=== PATIENT | male | born 1980 | race Caucasian/White ===

== ENCOUNTER 2017-10-22 00:56 | Observation (INO) ==
--- NOTE | 2017-10-22 01:17 | Emergency Department Note ---
Disposition Clinical Impression: Delusion of persecution, Amphetamine abuse Disposition: Admitted As Inpatient Condition: Fair General Adult HPI - General Chief complaint: ED Extremity Injury, Lower Stated complaint: feet blisters Time Seen by Provider: 10/22/17 00:59 Source: patient Limitations: no limitations Nursing Notes Reviewed: Yes Vital Signs Reviewed: Yes - History of Present Illness HPI Narrative: Patient's a 37-year-old male who presents the emergency department with complaints of bilateral foot blisters. Patient states he has "people from [address]" who has been following him and are attempting to harm him. He states he was seen at the police station and they did not believe him that he was told to come to the emergency department. He states he has been running from these people for several days and as a result his feet have become blistered. He denies the use of any illicit drugs other than intermittent marijuana. He states no one believes him and would like a urine drug screen to prove his sobriety. He otherwise denies any fever, chills, chest pain, shortness of breath, suicidal ideation or homicidal ideation. Pain Scale: 5 - Related Data Home Medications Medication Instructions Recorded Confirmed Lisinopril/Hydrochlorothiazide 1 each PO DAILY 05/14/15 05/14/15 [Zestoretic 20-25 mg Tablet] Previous Rx's Medication Instructions Recorded Naproxen [Naprosyn] 500 mg PO BID PRN #14 tablet 02/19/15 Ondansetron HCl [Zofran] 4 mg PO Q6HR PRN #12 tablet 02/19/15 Docusate [Colace] 100 mg PO BID #30 capsule 05/14/15 OxyCODONE/APAP 5/325 [Percocet 1 each PO Q4HR PRN #30 tablet 05/14/15 5/325 MG] Allergies Allergy/AdvReac Type Severity Reaction Status Date / Time Erythromycin Base AdvReac Vomiting Verified 02/24/15 16:09 Review of Systems: Pertinent positives and negatives reviewed in history of present illness. All other systems reviewed and are negative or normal. Past Medical History - Past Medical History Medical history: Reports: hypertension Surgical history: Reports: no surgical history Psychiatric history: Reports: anxiety, depression - Social History Smoking Status: Current every day smoker Smokeless Tobacco Status: No Alcohol use: Reports: none Drug use: Reports: none Physical Exam - General Limitations: no limitations General appearance: alert, in no apparent distress - Head Head exam: atraumatic, normocephalic - Eye Eye exam: Present: normal appearance - ENT ENT exam: normal exam (r great toe) - Respiratory Respiratory exam: Present: normal lung sounds bilaterally. Absent: respiratory distress - Cardiovascular Cardiovascular exam: Present: normal rhythm, tachycardia, normal heart sounds - Abdominal Exam Abdominal exam: Present: soft, Non-Tender - Expanded Lower Extremity Exam Foot/toe exam: Present: nail avulsion 1 - 2cm Oval unroofed bullae with erythematous skin beneath. No evidence of warmth or signs of infection. Skin is moist and painful to touch. 2 - [id number] intact moist bullae with white skin, painful to touch - Neurological Exam Neurological exam: Present: alert, oriented X3 - Psychiatric Psychiatric exam: Present: agitated, anxious - Expanded Psychiatric Exam Expanded psych exam: Present: paranoid, restlessness - Skin Skin exam: Present: warm, dry, intact Course - Reevaluation(s) Reevaluation #1: Patient refusing to give a urine sample as he believes a blonde haired lady followed him here and will put opioids in his urine sample. Straight cath ordered. Time: 03:40 - Consultations Consultation #1: Discussed with ELENI Ansari who will admit the patient. Time: 06:02 Vital Signs Temperature 98.7 F 10/22/17 01:04 Pulse Rate 119 10/22/17 01:04 Respiratory Rate 18 10/22/17 01:04 Blood Pressure 159/107 10/22/17 01:04 O2 Sat by Pulse Oximetry 97 10/22/17 01:04 Temperature 98.7 F 10/22/17 01:04 Pulse Rate 111 10/22/17 05:22 Respiratory Rate 20 10/22/17 05:22 Blood Pressure 171/77 10/22/17 05:22 O2 Sat by Pulse Oximetry 95 10/22/17 05:22 Oxygen Delivery Oxygen Delivery Room Air Medical Decision Making - MDM Narrative Medical decision making narrative: Patient's presentation concerning for hallucinations versus psychosis. Patient states people are out to get him and the police do not believe him. He states multiple patients being seen in the ED are actually here to attack him. Given his delusions, possible hallucinations, and paranoid behavior, patient has been put under an involuntary hold pending further medical evaluation. Urine drug screen revealed positive for amphetamines and given tachycardia and hypertension the patient is clinically intoxicated. Ativan given. Will require medical admission prior to psychiatric evaluation. Case discussed with hospitalist who will admit. - Medical Records Medical records reviewed: Yes I reviewed the patient's medical records. - Lab Data Lab results reviewed: Yes I reviewed the patient's lab results. Result diagrams: 10/22/17 02:20 10/22/17 02:20 Lab Results 10/22/17 10/22/17 10/22/17 Range/Units 02:20 02:20 03:56 WBC 11.0 (4.3-11.1) K/mcL RBC 4.87 (4.19-5.50) M/mcL Hgb 15.7 (12.9-16.9) g/dL Hct 44.0 (37.5-50.1) % MCV 90.3 (83.0-100.0) fL MCH 32.2 (28.0-33.3) pg MCHC 35.7 H (31.6-35.5) g/dL RDW 12.2 (11.5-14.5) % Plt Count 236 (140-400) K/mcL MPV 9.9 (9.4-12.4) fL Immature Gran % 0.4 (0-4) % Seg Neutrophils % 70.0 % Lymphocytes % 19.7 % Monocytes % 9.0 % Eosinophils % 0.2 % Basophils % 0.7 % Neutrophils # 7.7 (1.6-8.9) K/mcL Lymphocytes # 2.2 (0.6-4.6) K/mcL Monocytes # 1.0 (0.0-1.3) K/mcL Eosinophils # 0.0 (0.0-0.6) K/mcL Basophils # 0.1 (0.0-0.2) K/mcL Sodium 136 (136-145) mEq/L Potassium 3.4 L (3.5-5.1) mEq/L Chloride 100 (98-107) mEq/L Carbon Dioxide 26 (23-29) mEq/L BUN 20 (6-20) mg/dL Creatinine 1.08 (0.70-1.30) mg/dL Est GFR ( Amer) > 60 (> 60) Est GFR (Non-Af Amer) > 60 (> 60) BUN/Creatinine Ratio 19 (6-26) Glucose 160 H (70-105) mg/dL Calculated Osmolality 288 (280-300) Calcium 9.9 (8.6-10.3) mg/dL Urine Color Dark Yellow (Yellow) Urine Clarity Cloudy A (Clear) Urine pH 6.0 (5.0-8.0) pH Units Ur Specific [place] 1.023 (1.010-1.025) Urine Protein 100 H (Neg-Trace) mg/dL Urine Glucose (UA) Normal (Normal) mg/dL Urine Ketones 15 H (Negative) mg/dL Urine Blood Negative (Negative) Urine Nitrite Negative (Negative) Urine Bilirubin Small H (Negative) Urine Urobilinogen Normal (Normal) mg/dL Ur Leukocyte Esterase Negative (Negative) Urine Microscopic RBC 3-5 H (0-3) per hpf Urine Microscopic WBC 0-3 (0-3) per hpf Ur Squamous Epith Cells Many H (None-Few) per lpf Amorphous Sediment Few (Few) Urine Bacteria Moderate H (None-Few) per hpf Hyaline Casts Few (None-Few) per lpf Salicylates < 2.5 L (15.0-30.0) mg/dL Urine Opiates Screen (Dvxytj=596) ng/mL Acetaminophen < 10 L (10-20) mcg/mL Ur Barbiturates Screen (Uqlhwy=767) ng/mL Ur Phencyclidine Scrn (Cutoff=25) ng/mL Ur Amphetamines Screen (Lvdyiz=7087) ng/mL U Benzodiazepines Scrn (Aspgrk=151) ng/mL Urine Cocaine Screen (Cutoff= 300) ng/mL U Marijuana (THC) Screen (Cutoff = 50) ng/mL Ur Drug Screen Interp Ethyl Alcohol < 10 (Less than 10) mg/dL 10/22/17 Range/Units 03:56 WBC (4.3-11.1) K/mcL RBC (4.19-5.50) M/mcL Hgb (12.9-16.9) g/dL Hct (37.5-50.1) % MCV (83.0-100.0) fL MCH (28.0-33.3) pg MCHC (31.6-35.5) g/dL RDW (11.5-14.5) % Plt Count (140-400) K/mcL MPV (9.4-12.4) fL Immature Gran % (0-4) % Seg Neutrophils % % Lymphocytes % % Monocytes % % Eosinophils % % Basophils % % Neutrophils # (1.6-8.9) K/mcL Lymphocytes # (0.6-4.6) K/mcL Monocytes # (0.0-1.3) K/mcL Eosinophils # (0.0-0.6) K/mcL Basophils # (0.0-0.2) K/mcL Sodium (136-145) mEq/L Potassium (3.5-5.1) mEq/L Chloride (98-107) mEq/L Carbon Dioxide (23-29) mEq/L BUN (6-20) mg/dL Creatinine (0.70-1.30) mg/dL Est GFR ( Amer) (> 60) Est GFR (Non-Af Amer) (> 60) BUN/Creatinine Ratio (6-26) Glucose (70-105) mg/dL Calculated Osmolality (280-300) Calcium (8.6-10.3) mg/dL Urine Color (Yellow) Urine Clarity (Clear) Urine pH (5.0-8.0) pH Units Ur Specific [place] (1.010-1.025) Urine Protein (Neg-Trace) mg/dL Urine Glucose (UA) (Normal) mg/dL Urine Ketones (Negative) mg/dL Urine Blood (Negative) Urine Nitrite (Negative) Urine Bilirubin (Negative) Urine Urobilinogen (Normal) mg/dL Ur Leukocyte Esterase (Negative) Urine Microscopic RBC (0-3) per hpf Urine Microscopic WBC (0-3) per hpf Ur Squamous Epith Cells (None-Few) per lpf Amorphous Sediment (Few) Urine Bacteria (None-Few) per hpf Hyaline Casts (None-Few) per lpf Salicylates (15.0-30.0) mg/dL Urine Opiates Screen Negative (Zjhbjn=240) ng/mL Acetaminophen (10-20) mcg/mL Ur Barbiturates Screen Negative (Jcqxky=357) ng/mL Ur Phencyclidine Scrn Negative (Cutoff=25) ng/mL Ur Amphetamines Screen Positive H (Bxoumx=1228) ng/mL U Benzodiazepines Scrn Negative (Ayzfji=554) ng/mL Urine Cocaine Screen Negative (Cutoff= 300) ng/mL U Marijuana (THC) Screen Negative (Cutoff = 50) ng/mL Ur Drug Screen Interp See Below Ethyl Alcohol (Less than 10) mg/dL
[2017-10-22 02:29] LABS: Basophils # 0.1 K/mcL (0.0-0.2); Basophils % 0.7 %; Eosinophils % 0.2 %; Hemoglobin 15.7 g/dL (12.9-16.9); Immature Granulocytes % 0.4 % (0-4); Lymphocytes # 2.2 K/mcL (0.6-4.6); Lymphocytes % 19.7 %; Mean Corpuscular HGB Conc 35.7 g/dL (31.6-35.5); Mean Corpuscular Hemoglobin 32.2 pg (28.0-33.3); Mean Corpuscular Volume 90.3 fL (83.0-100.0); Mean Platelet Volume 9.9 fL (9.4-12.4); Neutrophils # 7.7 K/mcL (1.6-8.9); Platelet Count 236 K/mcL (140-400); Red Blood Count 4.87 M/mcL (4.19-5.50); Red Cell Distribution Width 12.2 % (11.5-14.5)
[2017-10-22 02:47] LABS: Acetaminophen < 10 mcg/mL (10-20); BUN/Creatinine Ratio 19 (6-26); Blood Urea Nitrogen 20 mg/dL (6-20); Calcium 9.9 mg/dL (8.6-10.3); Carbon Dioxide 26 mEq/L (23-29); Chloride 100 mEq/L (98-107); Ethanol < 10 mg/dL (Less than 10); Glucose 160 mg/dL (70-105); Osmolality,Calculated 288 (280-300); Potassium 3.4 mEq/L (3.5-5.1); Salicylate < 2.5 mg/dL (15.0-30.0); Sodium 136 mEq/L (136-145); eGFR For Non-African Americans > 60 (> 60)
--- NOTE | 2017-10-22 02:47 | Emergency Department Note ---
Disposition Clinical Impression: Delusion of persecution, Amphetamine abuse Disposition: Admitted As Inpatient Condition: Good General Adult HPI - General Chief complaint: ED Extremity Injury, Lower Stated complaint: feet blisters Time Seen by Provider: 10/22/17 00:59 Source: patient Limitations: no limitations - History of Present Illness Pain Scale: 5 - Related Data Home Medications Medication Instructions Recorded Confirmed Lisinopril [Zestril] 20 mg PO DAILY 10/22/17 10/22/17 Previous Rx's Medication Instructions Recorded hydroCHLOROthiazide 12.5 mg PO DAILY tablet 10/23/17 [Hydrochlorothiazide] Allergies Allergy/AdvReac Type Severity Reaction Status Date / Time Erythromycin Base AdvReac Vomiting Verified 10/22/17 12:34 Past Medical History - Past Medical History Medical history: Reports: hypertension Surgical history: Reports: no surgical history Psychiatric history: Reports: anxiety, depression - Social History Smoking Status: Current every day smoker Smokeless Tobacco Status: No Alcohol use: Reports: none Drug use: Reports: none Physical Exam - General Limitations: no limitations General appearance: alert, in no apparent distress Course Vital Signs Temperature 98.7 F 10/22/17 01:04 Pulse Rate 119 10/22/17 01:04 Respiratory Rate 18 10/22/17 01:04 Blood Pressure 159/107 10/22/17 01:04 O2 Sat by Pulse Oximetry 97 10/22/17 01:04 Temperature 98.4 F 10/23/17 11:48 Pulse Rate 85 10/23/17 11:48 Respiratory Rate 20 10/23/17 11:48 Blood Pressure 130/64 10/23/17 11:48 O2 Sat by Pulse Oximetry 100 10/23/17 11:48 Oxygen Delivery Oxygen Delivery Room Air Medical Decision Making - Lab Data Result diagrams: 10/22/17 02:20 10/22/17 02:20 Lab Results 10/22/17 10/22/17 10/22/17 Range/Units 02:20 02:20 03:56 WBC 11.0 (4.3-11.1) K/mcL RBC 4.87 (4.19-5.50) M/mcL Hgb 15.7 (12.9-16.9) g/dL Hct 44.0 (37.5-50.1) % MCV 90.3 (83.0-100.0) fL MCH 32.2 (28.0-33.3) pg MCHC 35.7 H (31.6-35.5) g/dL RDW 12.2 (11.5-14.5) % Plt Count 236 (140-400) K/mcL MPV 9.9 (9.4-12.4) fL Immature Gran % 0.4 (0-4) % Seg Neutrophils % 70.0 % Lymphocytes % 19.7 % Monocytes % 9.0 % Eosinophils % 0.2 % Basophils % 0.7 % Neutrophils # 7.7 (1.6-8.9) K/mcL Lymphocytes # 2.2 (0.6-4.6) K/mcL Monocytes # 1.0 (0.0-1.3) K/mcL Eosinophils # 0.0 (0.0-0.6) K/mcL Basophils # 0.1 (0.0-0.2) K/mcL Sodium 136 (136-145) mEq/L Potassium 3.4 L (3.5-5.1) mEq/L Chloride 100 (98-107) mEq/L Carbon Dioxide 26 (23-29) mEq/L BUN 20 (6-20) mg/dL Creatinine 1.08 (0.70-1.30) mg/dL Est GFR ( Amer) > 60 (> 60) Est GFR (Non-Af Amer) > 60 (> 60) BUN/Creatinine Ratio 19 (6-26) Glucose 160 H (70-105) mg/dL Calculated Osmolality 288 (280-300) Calcium 9.9 (8.6-10.3) mg/dL Urine Color Dark Yellow (Yellow) Urine Clarity Cloudy A (Clear) Urine pH 6.0 (5.0-8.0) pH Units Ur Specific [place] 1.023 (1.010-1.025) Urine Protein 100 H (Neg-Trace) mg/dL Urine Glucose (UA) Normal (Normal) mg/dL Urine Ketones 15 H (Negative) mg/dL Urine Blood Negative (Negative) Urine Nitrite Negative (Negative) Urine Bilirubin Small H (Negative) Urine Urobilinogen Normal (Normal) mg/dL Ur Leukocyte Esterase Negative (Negative) Urine Microscopic RBC 3-5 H (0-3) per hpf Urine Microscopic WBC 0-3 (0-3) per hpf Ur Squamous Epith Cells Many H (None-Few) per lpf Amorphous Sediment Few (Few) Urine Bacteria Moderate H (None-Few) per hpf Hyaline Casts Few (None-Few) per lpf Salicylates < 2.5 L (15.0-30.0) mg/dL Urine Opiates Screen (Tepdxj=810) ng/mL Acetaminophen < 10 L (10-20) mcg/mL Ur Barbiturates Screen (Jijzci=347) ng/mL Ur Phencyclidine Scrn (Cutoff=25) ng/mL Ur Amphetamines Screen (Ccndfd=1960) ng/mL U Benzodiazepines Scrn (Cjojyy=711) ng/mL Urine Cocaine Screen (Cutoff= 300) ng/mL U Marijuana (THC) Screen (Cutoff = 50) ng/mL Ur Drug Screen Interp Ethyl Alcohol < 10 (Less than 10) mg/dL 10/22/17 Range/Units 03:56 WBC (4.3-11.1) K/mcL RBC (4.19-5.50) M/mcL Hgb (12.9-16.9) g/dL Hct (37.5-50.1) % MCV (83.0-100.0) fL MCH (28.0-33.3) pg MCHC (31.6-35.5) g/dL RDW (11.5-14.5) % Plt Count (140-400) K/mcL MPV (9.4-12.4) fL Immature Gran % (0-4) % Seg Neutrophils % % Lymphocytes % % Monocytes % % Eosinophils % % Basophils % % Neutrophils # (1.6-8.9) K/mcL Lymphocytes # (0.6-4.6) K/mcL Monocytes # (0.0-1.3) K/mcL Eosinophils # (0.0-0.6) K/mcL Basophils # (0.0-0.2) K/mcL Sodium (136-145) mEq/L Potassium (3.5-5.1) mEq/L Chloride (98-107) mEq/L Carbon Dioxide (23-29) mEq/L BUN (6-20) mg/dL Creatinine (0.70-1.30) mg/dL Est GFR ( Amer) (> 60) Est GFR (Non-Af Amer) (> 60) BUN/Creatinine Ratio (6-26) Glucose (70-105) mg/dL Calculated Osmolality (280-300) Calcium (8.6-10.3) mg/dL Urine Color (Yellow) Urine Clarity (Clear) Urine pH (5.0-8.0) pH Units Ur Specific [place] (1.010-1.025) Urine Protein (Neg-Trace) mg/dL Urine Glucose (UA) (Normal) mg/dL Urine Ketones (Negative) mg/dL Urine Blood (Negative) Urine Nitrite (Negative) Urine Bilirubin (Negative) Urine Urobilinogen (Normal) mg/dL Ur Leukocyte Esterase (Negative) Urine Microscopic RBC (0-3) per hpf Urine Microscopic WBC (0-3) per hpf Ur Squamous Epith Cells (None-Few) per lpf Amorphous Sediment (Few) Urine Bacteria (None-Few) per hpf Hyaline Casts (None-Few) per lpf Salicylates (15.0-30.0) mg/dL Urine Opiates Screen Negative (Hbkiaw=265) ng/mL Acetaminophen (10-20) mcg/mL Ur Barbiturates Screen Negative (Imvxud=780) ng/mL Ur Phencyclidine Scrn Negative (Cutoff=25) ng/mL Ur Amphetamines Screen Positive H (Ujmiqk=8504) ng/mL U Benzodiazepines Scrn Negative (Nslnxq=691) ng/mL Urine Cocaine Screen Negative (Cutoff= 300) ng/mL U Marijuana (THC) Screen Negative (Cutoff = 50) ng/mL Ur Drug Screen Interp See Below Ethyl Alcohol (Less than 10) mg/dL Attestation Statement - Attestation Attestation: I examined this patient and my medical decision-making was reviewed with the Resident Physician. I agree with the documented findings, disposition and treatment plan as described except to the extent set forth below. Patient telling rather bizarre story of multiple individuals trying to kill him as a result of a drug that that his brother O's. Has singled out multiple individuals in the ED who he says are not here to be seen, but are here to get him instead. He is oriented, does not have delirium. I believe he is having paranoid delusions at this point. Psychiatric evaluation has been ordered.
[2017-10-22 04:06] LABS: Bilirubin,Urine Small (Negative); Blood,Urine Negative (Negative); Clarity,Urine Cloudy (Clear); Color,Urine Dark Yellow (Yellow); Glucose,Urine (UA) Normal (Normal); Ketones,Urine 15 mg/dL (Negative); Leukocyte Esterase,Urine Negative (Negative); Nitrite,Urine Negative (Negative); Protein,Urine 100 mg/dL (Neg-Trace); Specific Gravity,Urine 1.023 (1.010-1.025); Urobilinogen,Urine Normal (Normal)
[2017-10-22 04:07] LABS: Squamous Epithelial Cell,Urine Many per lpf (None-Few); WBC,Urine 0-3 per hpf (0-3)
[2017-10-22 04:25] LABS: Hyaline Casts,Urine Few per lpf (None-Few)
[2017-10-22 04:26] LABS: Amorphous Sediment,Urine Few (Few); Amphetamine Screen,Urine Positive ng/mL (Cutoff=1000); Bacteria,Urine Moderate per hpf (None-Few); Barbiturate Screen,Urine Negative ng/mL (Cutoff=200); Benzodiazepines Screen,Urine Negative ng/mL (Cutoff=200); Cannabinoid Screen,Urine Negative ng/mL (Cutoff = 50); Cocaine Screen,Urine Negative ng/mL (Cutoff= 300); Opiate Screen,Urine Negative ng/mL (Cutoff=300); Phencyclidine Screen,Urine Negative ng/mL (Cutoff=25)
[2017-10-22] MEDS ORDERED: *HR* LORazepam 1 MG TABLET PO ONE (04:38)
[2017-10-22] MEDS ORDERED: *HR* LORazepam 2 MG/ML VIAL IM ONE (05:03)
[2017-10-22] MEDS ORDERED: *HR* LORazepam 2 MG/ML VIAL ONE (05:05)
[2017-10-22] MEDS ORDERED: Naloxone 0.4 MG/ML INJ IVP PRN (08:29)
[2017-10-22] MEDS ORDERED: Potassium Chloride Elixir 20 MEQ/15 ML UDC PO ONE (08:31)
[2017-10-22] MEDS ORDERED: *HR* LORazepam 2 MG/ML VIAL IVP PRN (08:54)
--- NOTE | 2017-10-22 08:59 | Internal Med History&Physical ---
Date of Encounter: 10/22/17 Time of Encounter: 08:30 Internal Medicine - H&P: HPI Chief complaint: delusion History of present illness: Mr. Negro is a 37 year old male presented to the ED with paranoid idea that people are trying to kill him. Patient was medicated overnight with ativan and currently sleeping comfortably. Further information was obtained from chart review and the sitter who had been monitoring him. Apparently, he was oriented but had delusional ideas about people wanting to harm him in the ED. Afebrile but tachycardic. Labs were notable for mild hypokalemia. Urine drug screen positive for amphetamine. EtOH < 10. No known history of EtOH abuse or withdrawal. Did not have EKG done in the ED but the one done on the floor showed sinus rhythm with a rate of 90. Past Med Surg Social Fam HX - Past Medical History Medical history: hypertension Psychiatric history: anxiety, depression - Past Surgical History Surgical History: no surgical history - Social History Smoking Status: Current every day smoker Smokeless Tobacco Status: No Alcohol use: none Drug use: none Internal Medicine - H&P: Meds Naproxen [Naprosyn] 500 mg PO BID PRN #14 tablet 02/19/15 [Rx] Ondansetron HCl [Zofran] 4 mg PO Q6HR PRN #12 tablet 02/19/15 [Rx] Docusate [Colace] 100 mg PO BID #30 capsule 05/14/15 [Rx] Lisinopril/Hydrochlorothiazide [Zestoretic 20-25 mg Tablet] 1 each PO DAILY [History] OxyCODONE/APAP 5/325 [Percocet 5/325 MG] 1 each PO Q4HR PRN #30 tablet 05/14/15 [Rx] 3 Allergy/AdvReac Type Severity Reaction Status Date / Time Erythromycin Base AdvReac Vomiting Verified 02/24/15 16:09 All Systems PM: A 10-system review of systems was performed and is negative for pertinent findings except as documented above in the HPI. - Constitutional Vitals: Temp Pulse Resp BP Pulse Ox 98.2 F 116 18 126/77 95 10/22/17 06:47 10/22/17 06:47 10/22/17 06:47 10/22/17 06:47 10/22/17 06:47 Exam: General: resting comfortably, not in distress HEENT:EOM, pupils equal, round, and reactive. Cardiovascular:Normal S1 & S2, no murmurs or gallops. Lungs:Normal breath sounds Abdomen:Soft, non-tender Extremities:excoriations seen in both calves Neurological: no facial droop, focal deficits grossly Skin:Normal color, no rash, excoriations as above Pulses:Carotid and radial pulses normal +2. Rest of the physical exam is non-contributory Internal Med - H&P Results - Labs CBC & Chem 7: 10/22/17 02:20 10/22/17 02:20 - Assessment and plan (1) Amphetamine abuse Current Visit: Yes Status: Acute Assessment and plan: Presented with delusional ideas and tachycardia. Was medicating overnight with Ativan, currently resting comfortably with a heart rate of 90 Tachycardia was likely a physiological response to amphetamine which had already responded to BZD stable to transfer to psych unit (2) Delusion of persecution Current Visit: Yes Status: Acute Assessment and plan: Likely due to amphetamine use Management as above (3) Hypertension Current Visit: Yes Status: Acute Assessment and plan: Restart home meds when he is more alert Qualifiers: Hypertension type: unspecified Qualified Code(s): I10 - Essential (primary ) hypertension - Time Spent With Patient Total time spent is greater than 50% in coordination of care (as documented) at patient's floor/unit and/or counseling patient:
--- NOTE | 2017-10-22 11:23 | Consult Note ---
Date of Encounter: 10/22/17 Time of Encounter: 11:21 History of Present Illness Requesting Physician: Leighton Frazier Reason for consult: psychosis, drug induced? History of present illness: Mr. Negro is a 37 year old male admitted to the medical unit for possible psychosis versus drug-induced psychosis psychiatry was consulted for psychosis. On evaluation with patient this morning patient was unable to cooperate with interview he was unable to stay awake or keep his eyes open and was unable to answer any questions that were being asked by this provider. Patient was attempted to be woken up several times but patient was not able to stay awake patient was shaking and was worse restless and observation. Unable to assess safety at this time unable to assess if patient is currently suicidal or not unable to assess psychosis at this time we will need to reevaluate patient once he is more alert and able to converse he with this provider. In the meantime when necessary medication should be initiated for possible withdrawal symptoms and for agitation or aggression. CC: Leighton Frazier Past Med Surg Social Fam HX - Past Medical History Medical history: hypertension - Past Surgical History Surgical History: no surgical history - Social History Smoking Status: Current every day smoker Smokeless Tobacco Status: No Alcohol use: none Drug use: none Medications & Allergies Naproxen [Naprosyn] 500 mg PO BID PRN #14 tablet 02/19/15 [Rx] Ondansetron HCl [Zofran] 4 mg PO Q6HR PRN #12 tablet 02/19/15 [Rx] Docusate [Colace] 100 mg PO BID #30 capsule 05/14/15 [Rx] Lisinopril/Hydrochlorothiazide [Zestoretic 20-25 mg Tablet] 1 each PO DAILY [History] OxyCODONE/APAP 5/325 [Percocet 5/325 MG] 1 each PO Q4HR PRN #30 tablet 05/14/15 [Rx] 3 Allergy/AdvReac Type Severity Reaction Status Date / Time Erythromycin Base AdvReac Vomiting Verified 02/24/15 16:09 Psychiatry Exam - Constitutional Vitals: Temp Pulse Resp BP Pulse Ox 98.2 F 116 18 126/77 95 10/22/17 06:47 10/22/17 06:47 10/22/17 06:47 10/22/17 06:47 10/22/17 10:18 Results - Labs Labs: Laboratory Last Values WBC 11.0 K/mcL (4.3-11.1) 10/22/17 02:20 RBC 4.87 M/mcL (4.19-5.50) 10/22/17 02:20 Hgb 15.7 g/dL (12.9-16.9) 10/22/17 02:20 Hct 44.0 % (37.5-50.1) 10/22/17 02:20 MCV 90.3 fL (83.0-100.0) 10/22/17 02:20 MCH 32.2 pg (28.0-33.3) 10/22/17 02:20 MCHC 35.7 g/dL (31.6-35.5) H 10/22/17 02:20 RDW 12.2 % (11.5-14.5) 10/22/17 02:20 Plt Count 236 K/mcL (140-400) 10/22/17 02:20 MPV 9.9 fL (9.4-12.4) 10/22/17 02:20 Immature Gran % 0.4 % (0-4) 10/22/17 02:20 Seg Neutrophils % 70.0 % 10/22/17 02:20 Lymphocytes % 19.7 % 10/22/17 02:20 Monocytes % 9.0 % 10/22/17 02:20 Eosinophils % 0.2 % 10/22/17 02:20 Basophils % 0.7 % 10/22/17 02:20 Neutrophils # 7.7 K/mcL (1.6-8.9) 10/22/17 02:20 Lymphocytes # 2.2 K/mcL (0.6-4.6) 10/22/17 02:20 Monocytes # 1.0 K/mcL (0.0-1.3) 10/22/17 02:20 Eosinophils # 0.0 K/mcL (0.0-0.6) 10/22/17 02:20 Basophils # 0.1 K/mcL (0.0-0.2) 10/22/17 02:20 Sodium 136 mEq/L (136-145) 10/22/17 02:20 Potassium 3.4 mEq/L (3.5-5.1) L 10/22/17 02:20 Chloride 100 mEq/L (98-107) 10/22/17 02:20 Carbon Dioxide 26 mEq/L (23-29) 10/22/17 02:20 BUN 20 mg/dL (6-20) 10/22/17 02:20 Creatinine 1.08 mg/dL (0.70-1.30) 10/22/17 02:20 Est GFR ( Amer) > 60 (> 60) 10/22/17 02:20 Est GFR (Non-Af Amer) > 60 (> 60) 10/22/17 02:20 BUN/Creatinine Ratio 19 (6-26) 10/22/17 02:20 Glucose 160 mg/dL (70-105) H 10/22/17 02:20 Calculated Osmolality 288 (280-300) 10/22/17 02:20 Calcium 9.9 mg/dL (8.6-10.3) 10/22/17 02:20 Urine Color Dark Yellow (Yellow) 10/22/17 03:56 Urine Clarity Cloudy (Clear) A 10/22/17 03:56 Urine pH 6.0 pH Units (5.0-8.0) 10/22/17 03:56 Ur Specific Terry 1.023 (1.010-1.025) 10/22/17 03:56 Urine Protein 100 mg/dL (Neg-Trace) H 10/22/17 03:56 Urine Glucose (UA) Normal mg/dL (Normal) 10/22/17 03:56 Urine Ketones 15 mg/dL (Negative) H 10/22/17 03:56 Urine Blood Negative (Negative) 10/22/17 03:56 Urine Nitrite Negative (Negative) 10/22/17 03:56 Urine Bilirubin Small (Negative) H 10/22/17 03:56 Urine Urobilinogen Normal mg/dL (Normal) 10/22/17 03:56 Ur Leukocyte Esterase Negative (Negative) 10/22/17 03:56 Urine Microscopic RBC 3-5 per hpf (0-3) H 10/22/17 03:56 Urine Microscopic WBC 0-3 per hpf (0-3) 10/22/17 03:56 Ur Squamous Epith Cells Many per lpf (None-Few) H 10/22/17 03:56 Amorphous Sediment Few (Few) 10/22/17 03:56 Urine Bacteria Moderate per hpf (None-Few) H 10/22/17 03:56 Hyaline Casts Few per lpf (None-Few) 10/22/17 03:56 Salicylates < 2.5 mg/dL (15.0-30.0) L 10/22/17 02:20 Urine Opiates Screen Negative ng/mL (Tlepnt=167) 10/22/17 03:56 Acetaminophen < 10 mcg/mL (10-20) L 10/22/17 02:20 Ur Barbiturates Screen Negative ng/mL (Iejuoj=147) 10/22/17 03:56 Ur Phencyclidine Scrn Negative ng/mL (Cutoff=25) 10/22/17 03:56 Ur Amphetamines Screen Positive ng/mL (Vixfpr=4803) H 10/22/17 03:56 U Benzodiazepines Scrn Negative ng/mL (Tfcafk=145) 10/22/17 03:56 Urine Cocaine Screen Negative ng/mL (Cutoff= 300) 10/22/17 03:56 U Marijuana (THC) Screen Negative ng/mL (Cutoff = 50) 10/22/17 03:56 Ur Drug Screen Interp See Below 10/22/17 03:56 Ethyl Alcohol < 10 mg/dL (Less than 10) 10/22/17 02:20 Consult Discharge Plan - Plan Additional Instructions: - Continue one to one sitter at this time due to this provider not being able to fully evaluate patient due to his current mental status would recommend primary team to start withdrawal protocol for patient for withdrawal symptoms of restlessness and agitation which may include Haldol 2 mg as needed for agitation or aggression along with the Ativan 2 mg if agitation or aggression is severe patient would also benefit from clonidine for his restlessness and if there are any unstable vitals if patient is having trouble sleeping patient can be started on Seroquel 200 mg at bedtime psychiatry will reevaluate patient tomorrow to assess for any safety concerns or suicidality if patient is not suicidal on reevaluation and nonpsychotic patient will be referred for substance treatment program if patient continues to be suicidal and psychosis continues patient may be a candidate for one a but this will be determined once psychiatry reevaluates the patient Referrals: NONE,PCP [Primary Care Provider] -
[2017-10-22] MEDS ORDERED: Ibuprofen 800 MG TABLET PO PRN (15:35)
[2017-10-23] MEDS ORDERED: Lisinopril 20 MG TABLET PO SCH (09:00)
[2017-10-23] MEDS ORDERED: hydroCHLOROthiazide 25 MG TABLET PO SCH (09:00)
[2017-10-23 11:52] VITALS: BP 130/64
--- NOTE | 2017-10-23 13:05 | Psychiatry Progress Note ---
Date of Encounter: 10/23/17 Time of Encounter: 13:04 Subjective Interval history: Patient seen and evaluated today patient was alert and oriented major change from yesterday. Patient was with his daughter and grandson outpatient reports that he was high yesterday and that would like to the events of him coming into the hospital patient and patient's reports that they will be following up with outpatient care and going to substance treatment counseling and they have a plan and process that have the resources in place patient denied any safety concerns denied any SI or HI patient's also reports having no safety concerns with patient returning home with him. Patient's a one -to-one sitter can be discontinued and from a psychiatric standpoint patient can be discharged Results - Vital Signs Vital Signs: Temp Pulse Resp BP Pulse Ox 98.4 F 85 20 130/64 100 10/23/17 11:48 10/23/17 11:48 10/23/17 11:48 10/23/17 11:48 10/23/17 11:48 Assessment and Plan (1) Amphetamine abuse Current visit: Yes Status: Acute Consult Discharge Plan - Plan Additional Instructions: - Continue one to one sitter at this time due to this provider not being able to fully evaluate patient due to his current mental status would recommend primary team to start withdrawal protocol for patient for withdrawal symptoms of restlessness and agitation which may include Haldol 2 mg as needed for agitation or aggression along with the Ativan 2 mg if agitation or aggression is severe patient would also benefit from clonidine for his restlessness and if there are any unstable vitals if patient is having trouble sleeping patient can be started on Seroquel 200 mg at bedtime psychiatry will reevaluate patient tomorrow to assess for any safety concerns or suicidality if patient is not suicidal on reevaluation and nonpsychotic patient will be referred for substance treatment program if patient continues to be suicidal and psychosis continues patient may be a candidate for one a but this will be determined once psychiatry reevaluates the patient Referrals: NONE,PCP [Primary Care Provider] - Psychiatry Exam - Constitutional Vitals: Temp Pulse Resp BP Pulse Ox 98.4 F 85 20 130/64 100 10/23/17 11:48 10/23/17 11:48 10/23/17 11:48 10/23/17 11:48 10/23/17 11:48
--- NOTE | 2017-10-23 13:20 | Discharge Summary ---
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 Negro is a 37 year old male. Discharge discussed with: patient, family, nurse - Time Spent with Patient Total time spent providing and/or coordinating discharge services: Greater than 30 minutes (35 minutes) - Discharge Medications Home Medications: Lisinopril [Zestril] 20 mg PO DAILY 10/22/17 [History] hydroCHLOROthiazide [Hydrochlorothiazide] 12.5 mg PO DAILY tablet 10/23/17 [Rx] Allergies/Adverse Reactions: 3 Allergy/AdvReac Type Severity Reaction Status Date / Time Erythromycin Base AdvReac Vomiting Verified 10/22/17 12:34 Date of admission: 10/22/17 06:17 Primary care physician: PCP NONE Consults: 10/22/17 08:34 Consult to Psychiatry [CONS] Routine Consulting Provider: Psychiatry Lida Reason consult: Psychosis 10/22/17 10:09 Consult to Profiling Machine Set Up Operator [CONS] Routine Reason for SW Consult: d/c planning. homeless, iv drug use 10/22/17 12:00 Consult to Wound Care [CONS] Routine Reason for Consult: large open blisters on plantar surface of bilat feet, physican to complete call Call Completed: No Discharging clinician: Kike Pool Anticipated date of discharge: 10/23/17 - Constitutional Vitals: Temp Pulse Resp BP Pulse Ox 98.4 F 85 20 130/64 100 10/23/17 11:48 10/23/17 11:48 10/23/17 11:48 10/23/17 11:48 10/23/17 11:48 - Respiratory Respiratory exam: Present: CTAB. Absent: accessory muscle use, rales, rhonchi, wheezes - Cardiovascular Cardiovascular exam: Present: RRR, +S1, +S2. Absent: diastolic murmur, gallop, rubs, systolic murmur - GI/Abdominal GI/Abdominal exam: Present: normal bowel sounds, soft, no peritoneal signs. Absent: distended, tenderness - Patient Status Disposition: Home, Self-Care Condition: Good Functional capacity at discharge: independent ambulation Overall status at discharge: patient is back to baseline - Discharge Instructions Follow Up With: NONE,PCP [Primary Care Provider] - Forms: ED Satisfaction Letter Additional Instructions: The patient left the floor before I completed this document. - Diet and Activity Activity: resume usual activities as tolerated Diet: regular diet - VTE Reasons for not Prescribing Prophylaxis: Treatment not Indicated - Low risk for VTE Deep Vein Thrombosis/Pulmonary Embolism Present on Admission: No
--- NOTE | 2017-10-26 17:41 | Electrocardiograph Report ---
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
== END 2017-10-23 13:42 | disposition home or self-care (01) ==
LOC: 3NENU 00:56 → EMEROO 00:56 → SUATTDRO 06:17 → 3NENU 06:35
PROVIDERS: ADMIT Family Medicine; ATTEND Internal Medicine